=== PATIENT | female | born 1995 | race Caucasian/White ===

== ENCOUNTER 2021-08-13 03:04 | Emergency (ER) | payer MEDICAID ==
[~2021-08-13] VITALS: Ht 175.3 cm; Wt 61.0 kg
[2021-08-13 03:15] VITALS: BP 136/82
== END 2021-08-13 03:16 | disposition left against medical advice (07) ==
LOC: ER 03:04
DX: S00.93XA Contusion of unspecified part of head, initial encounter (principal); V99.XXXA Unspecified transport accident, initial encounter; Y93.89 Activity, other specified; Y92.89 Other specified places as the place of occurrence of the external cause; Y99.8 Other external cause status
CPT/HCPCS: 99283